=== PATIENT | male | born 1970 | race Caucasian/White ===

== ENCOUNTER → 2017-10-26 | Outpatient (CLI) | payer OTHER ==
[~2017-10-26] MED LIST: CYAN100020 PO; CYAN250T PO; FLUO10CA48 PO; IBUP-1428 PO; LOSA25TA18 PO; MULT-506 PO; NAPR1TAB9 PO; QUET1TAB30 PO; RXC5 PO; VITAMIN B12 PO; VITAMIN D PO
[2017-10-26 12:45] LABS: BASO % 0.5 %; BASO ABS # 0.04 K/uL (0-0.2); EOS % 1.4 %; EOS ABS # 0.11 K/uL (0-0.5); HEMATOCRIT 41.4 % (42-52); HEMOGLOBIN 14.4 g/dL (14.0-18.0); IG# 0.01 K/uL (0.00-0.02); LYMPH % 28.1 %; LYMPH ABS # 2.24 K/uL (1.2-3.4); MEAN CELL VOLUME 85.4 fL (80-100); MEAN CORPUSCULAR HEMOGLOBIN 29.7 pg (25-34); MEAN CORPUSCULAR HGB CONC 34.8 g/dl (32-36); MEAN PLATELET VOLUME 9.7 fL (7.4-10.4); MONO % 5.7 %; MONO ABS # 0.45 K/uL (0.11-0.59); NEUT % 64.2 %; NEUT ABS # 5.11 K/uL (1.4-6.5); PLATELET COUNT 217 K/uL (130-400); RED CELL DISTRIBUTION WIDTH CV 12.7 % (11.5-14.5); RED CELL DISTRIBUTION WIDTH SD 39.3 fL (36.4-46.3); WHITE BLOOD COUNT 7.96 K/uL (4.8-10.8)
[2017-10-26 13:04] LABS: INR 0.9 (0.9-1.1); PTT PATIENT 25.2 SECONDS (21.0-31.0)
[2017-10-26 13:16] LABS: BLOOD UREA NITROGEN 17 mg/dl (7-18); CALCIUM 9.1 mg/dl (8.5-10.1); CARBON DIOXIDE 30 mmol/L (21-32); CREATININE 1.26 mg/dl (0.60-1.40); GLUCOSE 114 mg/dl (70-99); POTASSIUM 3.8 mmol/L (3.5-5.1); SODIUM 139 mmol/L (136-145)
== END | disposition home or self-care (01) ==
LOC: C.LABMFLN 08:58
PROVIDERS: ATTEND Orthopaedic Surgery Orthopaedic Surgery of the Spine
DX: Z01.89 Encounter for other specified special examinations (principal)

== ENCOUNTER 2017-11-08 06:18 | Observation (INO) | payer OTHER ==
[2017-10-27 09:30] VITALS: BMI 38.0
[2017-11-08] VITALS (15 sets, daily range): BP systolic 111–143; BP diastolic 69–94; PULSE 85–96; TEMP 36.4–36.9; O2SAT 94–98; Ht 182.9 cm; Wt 126.8 kg
[~2017-11-08] VITALS: Ht 182.9 cm; Wt 126.8 kg
[~2017-11-08 06:18] MED LIST changes: +CEFAZOLIN 3000MG IV PUSH 22.5 ML IV SCH; -CYAN250T PO; +LACTATED RINGER'S 1000ML 1,000 ML IV SCH; -RXC5 PO; -VITAMIN B12 PO
[2017-11-08] MEDS ORDERED: PROMETHAZINE HCL INJ 12.5 MG in SODIUM CHLORIDE 0.9% 50ML 50 ML IV PRN (06:30)
[2017-11-08] MEDS ORDERED: PHENYLEPHRINE 100MCG/ML 5ML SYR IV PRN (06:30)
[2017-11-08] MEDS ORDERED: FENTANYL CITRATE INJ 50 MCG/1 ML 2 ML VIAL IV PRN (06:30)
[2017-11-08] MEDS ORDERED: EpHEDrine SULFATE INJ 50 MG/ML AMP IV PRN (06:30)
[2017-11-08] MEDS ORDERED: ONDANSETRON INJ 2 MG/ML 2 ML VIAL IV PRN ×2 (06:30→09:00)
[2017-11-08] MEDS ORDERED: ATROPINE SULFATE 0.1 MG/ML 5ML SYR IV PRN (06:30)
[2017-11-08] MEDS ORDERED: HYDROmorphone INJ 1 MG/ML SYR IV PRN (06:30)
[2017-11-08] MEDS ORDERED: MIDAZOLAM HCL 1 MG/ML 2ML VIAL ONE (06:41)
[2017-11-08] MEDS ORDERED: FENTANYL CITRATE INJ 50 MCG/1 ML 2 ML VIAL ONE ×3 (06:41→08:56)
[2017-11-08] MEDS ORDERED: SCOPOLAMINE 1.5 MG TDSY TD ONE (07:06)
[2017-11-08] MEDS ORDERED: BACITRACIN 50000 UNIT VIAL ONE (07:06)
[2017-11-08] MEDS ORDERED: SCOPOLAMINE 1.5 MG TDSY TD SCH (07:15)
--- NOTE | 2017-11-08 07:31 | History & Physical Bridge Note ---
H&P Re-Evaluation Bridge Note: I have examined the patient, reviewed the History & Physical and in the interval since the performance of the History & Physical I have noted the following changes of clinical significance: No changes noted
--- NOTE | 2017-11-08 07:32 | History and Physical ---
History & Physical Date Nov 08, 2017. Chief Complaint Neck and arm pain History of Present Illness The patient is a 47 year old male with complaints of neck and arm pain Past Medical/Surgical History Medical Problems: (1) HTN (hypertension) (2) Kidney stones Surgical Problems: (1) History of orthopedic surgery (2) S/P herniorrhaphy Additional History Hepatic Disease: No Endocrine Disorder: No Kidney Disease: No Hypertension: No Heart Disease: No Bleeding Tendencies: No Infectious Diseases: No Allergies Coded Allergies: Lisinopril (Verified Allergy, Intermediate, cough, 11/08/17) Home Medications Scheduled Cyanocobalamin (Vitamin B12), 1,000 MCG PO QAM Fluoxetine (Prozac), 40 MG PO QAM Losartan Potassium (Cozaar), 50 MG PO QAM Multivitamin (Multivitamin), 1 TAB PO QAM Quetiapine Fumarate (Seroquel), 12.5 MG PO HS [Vitamin D], 1 TAB PO QAM Scheduled PRN Ibuprofen (Motrin), 800 MG PO TID PRN for Pain Naproxen (Aleve), 440 MG PO UD PRN for Pain Physical Examination Skin: warm/dry, no rash Eyes: normal inspection, EOMI, sclerae normal ENT: normal ENT inspection, pharynx normal Head: normocephalic, atraumatic Neck: supple, no adenopathy, trachea midline Respiratory/Chest: lungs clear, normal breath sounds, no respiratory distress Cardiovascular: regular rate, rhythm, no edema, no murmur Abdomen / GI: normal bowel sounds, non tender Back: normal inspection Extremities: normal inspection, normal range of motion Neurologic/Psych: no motor/sensory deficits, alert, normal reflexes, oriented x 3 Diagnosis Cervical spinal stenosis Plan of Treatment ACDF C4 5
[2017-11-08] MEDS ORDERED: CHECK SCOPOLAMINE PATCH PLACEMENT SCH (08:00)
[2017-11-08] MEDS ORDERED: HYDROmorphone INJ 2 MG/ML SYR/VIAL ONE ×2 (08:10→08:57)
[2017-11-08] MEDS ORDERED: ONDANSETRON INJ 2 MG/ML 2 ML VIAL ONE ×2 (08:21→08:58)
[2017-11-08] MEDS ORDERED: RANITIDINE HCL 25 MG/ML INJ ONE (08:21)
[2017-11-08] MEDS ORDERED: PROPOFOL IV EMULSION 10 MG/ML 20 ML VIAL IV ONE (08:21)
[2017-11-08] MEDS ORDERED: DEXAMETHASONE SOD INJ 4 MG/ML VIAL ONE (08:21)
[2017-11-08] MEDS ORDERED: LIDOCAINE HCL 2% 2 ML VIAL (20MG/ML) ONE (08:21)
[2017-11-08] MEDS ORDERED: METOCLOPRAMIDE HCL INJ 5 MG/ML 2 ML VIAL ONE (08:21)
[2017-11-08] MEDS ORDERED: FLOSEAL HEMOSTATIC MATRIX 5ML TOP ONE (08:35)
[2017-11-08] MEDS ORDERED: GLYCOPYRROLATE INJ 0.2 MG/ML VIAL ONE (08:58)
[2017-11-08] MEDS ORDERED: NEOSTIGMINE METHYLSULFATE 1 MG/ML 10ML VIAL ONE (08:58)
--- NOTE | 2017-11-08 08:58 | [facility] Operative Report ---
Operative Report Operative Date Nov 08, 2017. Pre-Operative Diagnosis Cervical spinal stenosis Post-Operative Diagnosis Cervical spinal stenosis Procedure(s) Performed #1 intracervical discectomy bilateral foraminotomies C4 5. #2 anterior cervical arthrodesis C4 5. #3 placement of cortical allograft 8 mm in height at C4 5. #4 application afar complete screws across C4 5. Surgeon Dr. Gonzalez Control Cabinet Assembler Surgeon(s) Bettie Galvan PA-C Estimated Blood Loss 5cc Findings Herniated nucleus pulposus C4 5 Anesthesia Type General Description of Procedure Patient was met with preoperatively case discussed all questions addressed. After informed consent obtained patient was taken to the operative suite underwent intubation and placed in a supine position on the Bear table head in the Brown head baggage porter. All bony prominences were well-padded the eyes inspected to ensure no external pressure placed upon them. This point the anterior cervical spine was prepped and draped in the normal sterile fashion. The assistance of fluoroscopy identified the C4 5 disc space and a transverse incision was placed along the right anterior aspect of the cervical spine overlying this region. Sharp dissection with the assistance of bipolar electrocautery was performed onto an exposing the anterior cervical spine at C4 5. I verified her position with fluoroscopy. Then performed a complete discectomy of C4 5 out to the uncovertebral joints bilaterally. Zenon distracting pins utilized to assist in visualization. I did remove all posterior fibers all the herniated disc material within the canal. Endplates were then burred to subcortical bleeding bone and a 8 mm cortical allograft filled with DBM tapped in position. Distracting apparatus was removed and a shea plate and screws applied a assistance of fluoroscopy. Incision was then copious irrigated explored to ensure there was no damage to surrounding structures remaining bleeding. A 10 round ARIS drain inserted. Incision was then closed with 1 Vicryl in the fascia 2-0 Vicryl subcutaneous sleep 4-0 Monocryl for final skin closure Steri-Strips dressings placed. Patient was taken to the PACU stable condition. Please note Bettie Keenan was present at the entire procedure involved in patient positioning complex portions of the surgery and final skin closure. I attest to the content of the Intraoperative Record and any orders documented therein. Any exceptions are noted below.
[2017-11-08] MEDS ORDERED: DO NOT ADMINISTER PNEUMOCOCCAL VACCINE PRN (09:00)
[2017-11-08] MEDS ORDERED: DEXAMETHASONE INJ 8 MG in SYRINGE 0 ML IV PRN (09:00)
[2017-11-08] MEDS ORDERED: NALOXONE HCL 0.4 MG/1 ML VIAL/CARP IV PRN (09:00)
[2017-11-08] MEDS ORDERED: DiphenhydrAMINE HCL 50 MG/ML VIAL IV PRN (09:00)
[2017-11-08] MEDS ORDERED: ACETAMINOPHEN IV 100 ML IV PRN (09:00)
[2017-11-08] MEDS ORDERED: LORAZEPAM 0.5 MG TAB PO PRN (09:00)
[2017-11-08] MEDS ORDERED: DO NOT ADMINISTER FLU VACCINE PRN (09:00)
[2017-11-08] MEDS ORDERED: HYDROmorphone INJ 0.5 MG/0.5 ML SYR IV PRN (09:00)
[2017-11-08] MEDS ORDERED: MAGNESIUM HYDROXIDE SUSP 30 ML UDC PO PRN (09:00)
[2017-11-08] MEDS ORDERED: RACEPINEPHRINE 2.25% NEBU SOLN 0.5 ML VIAL INH PRN (09:00)
[2017-11-08] MEDS ORDERED: LORAZEPAM INJ 0.5 MG in SYRINGE 0.75 ML IV PRN (09:00)
[2017-11-08] MEDS ORDERED: LABETALOL HCL IV 5 MG/ML 20ML IV ONE (09:13)
--- NOTE | 2017-11-08 09:41 | DIAGNOSTIC IMAGING REPORT ---
CERVICAL 2 OR 3 VIEWS CLINICAL HISTORY: 47 years-old Male presenting with ACDF C4-5. TECHNIQUE: 2 fluoroscopic spot image(s) obtained as part of an intraoperative procedure. COMPARISON: 05/18/2017. FINDINGS/IMPRESSION: Postsurgical changes of anterior plate and screw fixation of C4-C5 with discectomy and interbody spacer. Normal anatomic alignment. Please see surgical report for further details. Fluoroscopy dosage (mGy): 1.86. Fluoroscopy time: 11.1 seconds. Number of fluoroscopic spot images: 2. Electronically signed by: Gilberto Orantes M.D. 11/08/2017 9:39 AM Dictated Date/Time: 11/08/2017 9:35 AM
[2017-11-08] MEDS ORDERED: NURSING VERBAL MED ORDER ONE (09:45)
--- NOTE | 2017-11-08 10:14 | Anesthesiology Progress Note ---
Anesthesia Post Op Note Date & Time Nov 08, 2017 at 10:14 Vital Signs Pain Intensity: 0 Vital Signs Past 12 Hours Date Time Temp Pulse Resp B/P (MAP) Pulse Ox O2 Delivery O2 Flow Rate FiO2 11/08/17 10:00 78 14 111/76 98 Nasal Cannula 2 11/08/17 09:50 76 12 124/75 98 Nasal Cannula 2 11/08/17 09:40 85 15 123/81 100 Oxymask 10 11/08/17 09:30 81 12 128/72 100 Oxymask 10 11/08/17 09:20 77 15 140/99 98 Oxymask 10 11/08/17 09:11 36.2 93 14 130/80 100 Oxymask 10 11/08/17 06:48 36.7 91 18 143/94 (110) 97 Room Air Notes Mental Status: alert / awake / arousable, participated in evaluation Pt Amnestic to Procedure: Yes Nausea / Vomiting: adequately controlled Pain: adequately controlled Airway Patency, RR, SpO2: stable & adequate BP & HR: stable & adequate Hydration State: stable & adequate Anesthetic Complications: no major complications apparent Awake, doing well, VSS. Pain controlled. Ready for d/c to floor.
[2017-11-08] MEDS ORDERED: IV FLUIDS COMPLETED PRN (10:15)
[2017-11-08] MEDS: HYDROmorphone INJ 1 MG/ML SYR IV PRN ×4 (11:35→21:46)
[2017-11-08] MEDS: FLUOXETINE HCL 20 MG CAP PO SCH (12:28)
[2017-11-08] MEDS: LOSARTAN POTASSIUM 50 MG TAB PO SCH (12:29)
[2017-11-08] MEDS: DOCUSATE SODIUM 100 MG CAP PO SCH ×2 (12:29→20:57)
[2017-11-08] MEDS: SODIUM CHLORIDE 0.9% 1000ML 1,000 ML IV SCH ×2 (12:30→20:57)
[2017-11-08] MEDS ORDERED: RXC5 PO (14:35)
--- NOTE | 2017-11-08 14:35 | Discharge Instructions ---
Discharge Instructions Date of Service Nov 08, 2017. Admission Reason for Admission: Spinal Stenosis Discharge Discharge Diagnosis / Problem: cervical stenosis Discharge Goals Goal(s): Improve function Activity Recommendations Activity Limitations: per Instructions/Follow-up section . Instructions / Follow-Up Instructions / Follow-Up ACTIVITY RECOMMENDATIONS: SELF CARE INSTRUCTIONS AFTER CERVICAL FUSIONS 1. No smoking. Smoking drastically decreases the chance of a solid fusion. 2. No bending, lifting more than 5 pounds, or twisting (roll like a log when turning in bed). 3. You may shower 3 days after surgery. Thoroughly dry wound. Do not soak in the tub. 4. Cervical collar: Must be worn at all times including sleeping. You may remove the brace only to bath, eat and if you are sitting in a recliner. 5. Please walk as much as you can for exercise. Gradually increase the distance that you walk as your endurance increases. SPECIAL CARE INSTRUCTIONS: VERY IMPORTANT TO READ AND REVIEW A. Do not take any anti-inflammatory medications (i.e. Indocin, Advil, Aspirin, Naprosyn, Aleve, Motrin, etc.) as these may inhibit the chance of a solid fusion. Tylenol is okay to take. B. Your surgical incision has been closed with a cosmetic suture under the skin that will dissolve in about 6 weeks. In 14 days, you can use a pair of clean scissors and cut the suture that is left outside of the skin at the ends of your incision. C. Complications are uncommon, but please contact us if you have any signs or symptoms of: 1. wound infection (fever higher than 102.5 degrees F, redness, separation of wound, drainage, or increasing pain from the incision) 2. blood clots in legs (pain, swelling, redness and warmth in legs) 3. urinary tract infection (fever higher than 102.5 degrees, burning upon urination or increased frequency of urination) 4. nerve problems (inability to walk on your toes or heels, numbness, loss of bowel or bladder control) 5. any other symptoms that concern you. D. Please call the office at if you have any concerns or questions about your operation or recovery. MANAGING PAIN AFTER SPINAL SURGERY 1. Narcotic medication is intended for short-term use and will be provided for surgical pain. Surgical pain usually lasts for a period of 4-6 weeks. Narcotic medication includes Percocet, Vicodin, Darvocet, Tylenol #3 or Lortab. 2. Longer-term pain is more appropriately treated with non-narcotic medication such as Tylenol ES. 3. Muscle spasm is not appropriately treated with narcotics. Muscle relaxers such as Soma, Flexeril or Skelaxin can be used along with Tylenol ES. 4. Remember that we all live with some "aches and pains". This is not unusual or uncommon after an injury or as we get older. 5. We will provide appropriate medication within the normal guidelines of their prescribed use. We will also be very cautious and aware of potential abuse and extended duration of patients' medication needs. 6. Please allow 2-3 days to process refills. Prescriptions will not be mailed but must be picked up at the office. FOLLOW UP VISIT: Keep your scheduled follow-up appointment. Any questions, please call the office at . Current Hospital Diet Patient's current hospital diet: Clear Liquid Diet Discharge Diet Recommended Diet: Regular Diet Procedures Procedures Performed: #1 intracervical discectomy bilateral foraminotomies C4 5. #2 anterior cervical arthrodesis C4 5. #3 placement of cortical allograft 8 mm in height at C4 5. #4 application afar complete screws across C4 5. Pending Studies Studies pending at discharge: no Medical Emergencies . Who to Call and When: Medical Emergencies: If at any time you feel your situation is an emergency, please call 911 immediately. . Non-Emergent Contact Non-Emergency issues call your: Primary Care Provider . "Provider Documentation" section prepared by Alex Gonzalez. . VTE Core Measure Inpt VTE Proph given/why not?: Gaurang Mckeon, SCD's
[2017-11-08] MEDS: CEFAZOLIN IV 2,000 MG in SYRINGE 0 ML IV SCH (16:34)
[2017-11-08] MEDS: CHECK SCOPOLAMINE PATCH PLACEMENT SCH ×2 (16:34→23:19)
[2017-11-08] MEDS ORDERED: QUETIAPINE FUMARATE 25 MG TAB PO SCH (21:00)
[2017-11-08] MEDS: OXYCODONE HCL IR 5 MG TAB (IMMEDIATE RELEASE) PO PRN (23:16)
[2017-11-09] VITALS (10 sets, daily range): BP systolic 97–111; BP diastolic 61–75; PULSE 68–88; TEMP 36.4–36.7; O2SAT 94–99
[2017-11-09] MEDS: CEFAZOLIN IV 2,000 MG in SYRINGE 0 ML IV SCH ×2 (00:26→08:55)
[2017-11-09] MEDS: OXYCODONE HCL IR 5 MG TAB (IMMEDIATE RELEASE) PO PRN ×2 (05:44→13:25)
[2017-11-09] MEDS: SODIUM CHLORIDE 0.9% 1000ML 1,000 ML IV SCH (06:00)
[2017-11-09] MEDS: CHECK SCOPOLAMINE PATCH PLACEMENT SCH (07:25)
--- NOTE | 2017-11-09 07:47 | Discharge Summary ---
Orthopedic Discharge Summary Admission Date/Reason Nov 08, 2017 at 06:40 Spinal Stenosis. Discharge Date/Disposition Nov 09, 2017 Home Diagnosis Principal Diagnosis: neuroforaminal stenosis cervical spine Procedure(s) Performed ACDF C4-5 Medication Reconciliation New Medications: Oxycodone HCl (Oxycodone HCl) 5 Mg Tab 5-10 MG PO Q4H PRN for moderate-severe pain for 30 Days, #30 TAB Continued Medications: Cyanocobalamin (Vitamin B12) 1,000 Mcg Tab 1000 MCG PO QAM Fluoxetine (Prozac) 10 Mg Cap 40 MG PO QAM, CAP Losartan Potassium (Cozaar) 25 Mg Tab 50 MG PO QAM for 30 Days, #60 TAB 5 Refills Multivitamin (Multivitamin) Tab 1 TAB PO QAM, TAB Quetiapine Fumarate (Seroquel) 25 Mg Tab 12.5 MG PO HS, TAB [Vitamin D] () 1 TAB PO QAM Discontinued Medications: Ibuprofen (Motrin) 800 Mg Tab 800 MG PO TID PRN for Pain, TAB Naproxen (Aleve) 220 Mg Tab 440 MG PO UD PRN for Pain, 0 Refills Admission Physical Exam As per Admitting History & Physical. Hospital Course pt had an uncomplicated hospital course. pain controlled. arm symptoms improved. ambulating independently Discharge Instructions ACTIVITY RECOMMENDATIONS: SELF CARE INSTRUCTIONS AFTER CERVICAL FUSIONS 1. No smoking. Smoking drastically decreases the chance of a solid fusion. 2. No bending, lifting more than 5 pounds, or twisting (roll like a log when turning in bed). 3. You may shower 3 days after surgery. Thoroughly dry wound. Do not soak in the tub. 4. Cervical collar: Must be worn at all times including sleeping. You may remove the brace only to bath, eat and if you are sitting in a recliner. 5. Please walk as much as you can for exercise. Gradually increase the distance that you walk as your endurance increases. SPECIAL CARE INSTRUCTIONS: VERY IMPORTANT TO READ AND REVIEW A. Do not take any anti-inflammatory medications (i.e. Indocin, Advil, Aspirin, Naprosyn, Aleve, Motrin, etc.) as these may inhibit the chance of a solid fusion. Tylenol is okay to take. B. Your surgical incision has been closed with a cosmetic suture under the skin that will dissolve in about 6 weeks. In 14 days, you can use a pair of clean scissors and cut the suture that is left outside of the skin at the ends of your incision. C. Complications are uncommon, but please contact us if you have any signs or symptoms of: 1. wound infection (fever higher than 102.5 degrees F, redness, separation of wound, drainage, or increasing pain from the incision) 2. blood clots in legs (pain, swelling, redness and warmth in legs) 3. urinary tract infection (fever higher than 102.5 degrees, burning upon urination or increased frequency of urination) 4. nerve problems (inability to walk on your toes or heels, numbness, loss of bowel or bladder control) 5. any other symptoms that concern you. D. Please call the office at if you have any concerns or questions about your operation or recovery. MANAGING PAIN AFTER SPINAL SURGERY 1. Narcotic medication is intended for short-term use and will be provided for surgical pain. Surgical pain usually lasts for a period of 4-6 weeks. Narcotic medication includes Percocet, Vicodin, Darvocet, Tylenol #3 or Lortab. 2. Longer-term pain is more appropriately treated with non-narcotic medication such as Tylenol ES. 3. Muscle spasm is not appropriately treated with narcotics. Muscle relaxers such as Soma, Flexeril or Skelaxin can be used along with Tylenol ES. 4. Remember that we all live with some "aches and pains". This is not unusual or uncommon after an injury or as we get older. 5. We will provide appropriate medication within the normal guidelines of their prescribed use. We will also be very cautious and aware of potential abuse and extended duration of patients' medication needs. 6. Please allow 2-3 days to process refills. Prescriptions will not be mailed but must be picked up at the office. FOLLOW UP VISIT: Keep your scheduled follow-up appointment. Any questions, please call the office at . Please refer to the electronic Patient Visit Report (Discharge Instructions) for additional information.
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
[2017-11-09] MEDS: LOSARTAN POTASSIUM 50 MG TAB PO SCH (09:00)
[2017-11-09] MEDS: DOCUSATE SODIUM 100 MG CAP PO SCH (09:34)
[2017-11-09] MEDS: FLUOXETINE HCL 20 MG CAP PO SCH (09:34)
[2017-11-10] MEDS ORDERED: BISACODYL 5 MG TABEC PO PRN (06:00)
[2017-11-10] MEDS ORDERED: BISACODYL 10 MG SUPP PR PRN (06:00)
[2017-11-10] MEDS ORDERED: POLYETHYLENE (MIRALAX) 17 GM PACK PO SCH (09:00)
[2017-11-11] MEDS ORDERED: SCOPOLAMINE 1.5 MG TDSY TD SCH (09:01)
== END 2017-11-09 13:53 | disposition home or self-care (01) ==
LOC: C.ACU 06:18 → C.3E 06:40 → ENRESERV 09:59
PROVIDERS: ADMIT Orthopaedic Surgery Orthopaedic Surgery of the Spine; ATTEND Orthopaedic Surgery Orthopaedic Surgery of the Spine
DX: M48.02 Spinal stenosis, cervical region (principal); I10 Essential (primary) hypertension; Z87.442 Personal history of urinary calculi; G47.33 Obstructive sleep apnea (adult) (pediatric); F41.9 Anxiety disorder, unspecified; E66.01 Morbid (severe) obesity due to excess calories; Z88.8 Allergy status to other drugs, medicaments and biological substances